=== PATIENT | male | born 1960 | race Caucasian/White ===

== ENCOUNTER 2021-12-15 01:24 | Inpatient (IN) | payer MEDICARE ==
[2021-12-15] MEDS ORDERED: Fentanyl 100 MCG/2 ML VIAL ONE ×3 (02:02→07:26)
[2021-12-15] MEDS ORDERED: Ondansetron PF 4 MG/2 ML Vial ONE ×2 (02:02→03:40)
[2021-12-15] MEDS ORDERED: Piperacillin/Tazobactam 3.375 GM VIAL ONE (02:23)
[2021-12-15 02:33] LABS: ALT (SGPT) Less than 7 U/L (8-55); AST (SGOT) 8 U/L (5-34); Albumin 2.9 g/dL (3.4-4.8); Alkaline Phosphatase 137 U/L (40-110); Anion Gap 16 mmol/L (10-20); BUN (Urea Nitrogen) 27 mg/dL (8.4-25.7); Bilirubin, Total 0.6 mg/dL (0.2-1.2); Calc. Creatinine Clearance 0 mL/min (70-130); Calcium 8.4 mg/dL (7.8-10.44); Carbon Dioxide 24 mmol/L (23-31); Chloride 102 mmol/L (98-107); Globulin 2.8 g/dL (2.4-3.5); Glucose 81 mg/dL (80-115); Lipase 23 U/L (8-78); Potassium 3.6 mmol/L (3.5-5.1); Protein, Total 5.7 g/dL (5.8-8.1); Sodium 138 mmol/L (136-145)
[2021-12-15 02:42] LABS: #Lymphocytes 0.3 thou/uL (1.20-3.40); #Monocytes 0.1 thou/uL (0.11-0.59); #Neutrophils 1.5 thou/uL (1.40-6.50); %Eosinophils 1.8 % (0.0-10.0); %Lymphocytes 13.6 % (21.0-51.0); %Monocytes 3.7 % (0.0-10.0); %Neutrophils 80.8 % (42.0-75.0); Hemoglobin 11.3 g/dL (14.0-18.0); MDiff Complete? YES; Macrocytosis SLIGHT = 6-15 cells (100X) (0-5/hpf); Mean Corpuscular HGB CONC 30.5 g/dL (32.0-36.0); Mean Platelet Volume 6.8 fL (7.4-10.4); Platelet Count 179 thou/uL (130-400); Platelet Morphology Comment Appears Adequate; RBC Distribution Width 16.8 % (11.5-14.5); Red Blood Cell (RBC) Count 3.54 mill/uL (4.70-6.10); Reflex for Review?? YES; White Blood Cell (WBC) Count 1.9 thou/uL (4.8-10.8)
[2021-12-15] MEDS ORDERED: Phenylephrine 10 MG/ML VIAL ONE (03:26)
[2021-12-15] MEDS ORDERED: Lidocaine 1% PF 5 ML VIAL ONE (03:40)
[2021-12-15] MEDS ORDERED: Rocuronium Bromide 10 MG/ML (10ML VIAL) ONE (03:40)
[2021-12-15] MEDS ORDERED: Succinylcholine 200 MG/10 ml SYRINGE FS ONE (03:40)
[2021-12-15] MEDS ORDERED: Vecuronium 10 MG VIAL ONE (03:40)
[2021-12-15 03:59] LABS: SARS-CoV-2 NAA Rapid Test Not Detected (NotDetected)
[2021-12-15] MEDS ORDERED: Norepinephrine 4 MG/4 ML VIAL ONE (04:02)
[2021-12-15] MEDS ORDERED: Albumin 5% 500 ML ONE (04:15)
[2021-12-15] MEDS ORDERED: Midazolam HCl 5 mg/5 ml Vial ONE (04:19)
[2021-12-15] MEDS ORDERED: Dextrose 5% in Water 1,000 ML IV PRN (07:18)
[2021-12-15] MEDS ORDERED: Morphine 2 MG/ML VIAL SLOW IVP PRN ×2 (07:18→07:45)
[2021-12-15] MEDS ORDERED: Morphine 4 MG/ML VIAL SLOW IVP PRN ×2 (07:18→07:45)
[2021-12-15] MEDS ORDERED: Dextrose 50% Abboject 50 ML SYRINGE SLOW IVP PRN (07:18)
[2021-12-15] MEDS ORDERED: Ondansetron PF 4 MG/2 ML Vial IVP PRN (07:18)
[2021-12-15 07:42] LABS: Hemoglobin 10.4 g/dL (14.0-18.0)
[2021-12-15] MEDS ORDERED: DISCONTINUE PREVIOUS NARCOTIC PAIN MEDICATIONS AND BENZODIAZEPINES FS SCH (07:45)
[2021-12-15] MEDS ORDERED: Propofol 1,000 MG/100 ML VIAL IV PRN (07:45)
[2021-12-15] MEDS ORDERED: Fentanyl BOLUS 250 ML IVPB PRN (07:45)
[2021-12-15] MEDS ORDERED: Propofol BOLUS 1,000 MG/100 ML VIAL IV PRN (07:45)
[2021-12-15] MEDS ORDERED: Fentanyl CADD 100 ML IV SCH (07:45)
[2021-12-15 07:56] LABS: Hemoglobin 10.7 g/dL (14.0-18.0); Mean Corpuscular HGB CONC 31.1 g/dL (32.0-36.0); Mean Corpuscular Hemoglobin 32.8 pg (27.0-31.0); Mean Platelet Volume 7.2 fL (7.4-10.4); Platelet Count 180 thou/uL (130-400); RBC Distribution Width 17.2 % (11.5-14.5); Red Blood Cell (RBC) Count 3.25 mill/uL (4.70-6.10); White Blood Cell (WBC) Count 2.6 thou/uL (4.8-10.8)
[2021-12-15 08:00] LABS: INR-International Normal Ratio 1.5; Lactic Acid 1.8 mmol/L (0.5-2.2); Prothrombin Time 18.1 sec (12.0-14.7)
[2021-12-15 08:01] LABS: PTT 38.9 sec (22.9-36.1)
[2021-12-15 08:04] LABS: Anion Gap 12 mmol/L (10-20); BUN (Urea Nitrogen) 29 mg/dL (8.4-25.7); Calc. Creatinine Clearance 0 mL/min (70-130); Calcium 7.5 mg/dL (7.8-10.44); Carbon Dioxide 23 mmol/L (23-31); Chloride 107 mmol/L (98-107); Glucose 98 mg/dL (80-115); Potassium 3.5 mmol/L (3.5-5.1); Sodium 138 mmol/L (136-145)
[2021-12-15 08:27] LABS: Anisocytosis SLIGHT = 6-15 cells (100X) (0-5/hpf); Band 25 % (5-11); Lymphocytes 6 % (21-51); MDiff Complete? YES; Metamyelocyte 3 % (0-0); Monocytes 9 % (0-10); Neutrophil 57 % (42-75); Ovalocytes SLIGHT = 2-5 cells (100X) (0-1/hpf); Platelet Morphology Comment Appears Adequate; Polychromasia SLIGHT = 2-3 cells (100X) (0-2/hpf)
[2021-12-15] MEDS ORDERED: Prevnar 13-Val Conj/PF 0.5 ML SYRINGE IM ONE (08:45)
[2021-12-15] MEDS ORDERED: Norepinephrine 8 MG/0.9% NS 250 ML IVPB SCH (09:00)
[2021-12-15 10:29] LABS: Actual Bicarbonate (HCO3a) 24.4 mEq/L (22-28); Base Excess (BEa) -1.7 mEq/L (-2.0 to +3.0); CO2 Tension 47.2 mmHg (35.0-45.0); Calcium, Ionized (arterial) 1.12 mmol/L (1.12-1.30); Carboxyhemoglobin (COHb) 1.2 gm% (0.0-3.0); Hemoglobin (Hb) 11.1 g/dL (14.0-18.0); O2 Tension (PaO2), arterial 77.6 mmHg (> 80.0); Potassium - ABG Lab 3.51 mmol/L (3.70-5.30); Puncture Site RBA; pH, Arterial 7.33 (7.35-7.45)
[2021-12-15] MEDS ORDERED: Albumin 25% 100 ML ONE (11:16)
[2021-12-15] MEDS: Famotidine/PF 20 mg/2ml Vial SLOW IVP SCH (11:49)
[2021-12-15] MEDS: Sodium Chloride 0.9% 1,000 ML IV SCH ×3 (11:49→23:16)
[2021-12-15] MEDS ORDERED: Iopamidol 370 76% 100 ML VIAL ONE (13:18)
[2021-12-15 13:56] LABS: Hemoglobin 8.8 g/dL (14.0-18.0)
[2021-12-15] MEDS ORDERED: Sodium Chloride 0.9% 1,000 ML IV SCH (14:00)
[2021-12-15] MEDS: Piperacillin/Tazobactam 3.375 GM in Sodium Chloride 0.9% 100 ML IVPB SCH (15:48)
[2021-12-15 17:25] LABS: Hemoglobin 8.4 g/dL (14.0-18.0)
[2021-12-15] MEDS: Hydrocortisone Sod Succ/PF 100 mg/2 ml Vial IVP SCH ×2 (18:05→23:16)
[2021-12-15] MEDS: fentaNYL Citrate-0.9 % NaCl/PF 100 ML IV SCH (18:59)
[2021-12-15] MEDS: Norepinephrine 8 MG, Admixture Fee 1 EACH in Dextrose 5% in Water 242 ML IVPB SCH ×2 (19:01→23:09)
[2021-12-15 19:27] LABS: Hemoglobin 8.2 g/dL (14.0-18.0)
[2021-12-16] MEDS: Piperacillin/Tazobactam 3.375 GM in Sodium Chloride 0.9% 100 ML IVPB SCH ×2 (02:35→14:12)
[2021-12-16] MEDS: Norepinephrine 8 MG, Admixture Fee 1 EACH in Dextrose 5% in Water 242 ML IVPB SCH (04:20)
[2021-12-16 05:04] LABS: Anisocytosis SLIGHT = 6-15 cells (100X) (0-5/hpf); Band 69 % (5-11); Burr Cells MODERATE= 6-15 cells (100X) (0-1/hpf); Hemoglobin 7.4 g/dL (14.0-18.0); Hypochromia SLIGHT = 6-15 cells (100X) (0-5/hpf); Lymphocytes 4 % (21-51); MDiff Complete? YES; Macrocytosis MODERATE=16-30 cells (100X) (0-5/hpf); Mean Corpuscular HGB CONC 29.5 g/dL (32.0-36.0); Mean Platelet Volume 8.1 fL (7.4-10.4); Metamyelocyte 14 % (0-0); Monocytes 3 % (0-10); Myelocyte 2 % (0-0); Neutrophil 8 % (42-75); Platelet Count 208 thou/uL (130-400); Platelet Morphology Comment Appears Adequate; Polychromasia SLIGHT = 2-3 cells (100X) (0-2/hpf); RBC Distribution Width 16.7 % (11.5-14.5); Red Blood Cell (RBC) Count 2.24 mill/uL (4.70-6.10); Toxic Granulation SLIGHT; White Blood Cell (WBC) Count 23.9 thou/uL (4.8-10.8)
[2021-12-16] MEDS: Hydrocortisone Sod Succ/PF 100 mg/2 ml Vial IVP SCH ×4 (05:05→23:59)
[2021-12-16] MEDS ORDERED: Dextrose 5 %-0.45 % NaCl 1,000 ML IV SCH (06:45)
[2021-12-16 07:07] LABS: Actual Bicarbonate (HCO3a) 7.1 mEq/L (22-28); CO2 Tension 37.1 mmHg (35.0-45.0); Calcium, Ionized (arterial) 1.02 mmol/L (1.12-1.30); Carboxyhemoglobin (COHb) 0.9 gm% (0.0-3.0); Hemoglobin (Hb) 7.4 g/dL (14.0-18.0); O2 Tension (PaO2), arterial 89.3 mmHg (> 80.0); Potassium - ABG Lab 6.19 mmol/L (3.70-5.30)
[2021-12-16 07:08] LABS: Puncture Site Arterial Line
[2021-12-16 07:09] LABS: ALV-art Gradient 149.525 mmHg (0-20)
[2021-12-16 07:20] LABS: Chloride 107 mmol/L (98-107); Sodium 137 mmol/L (136-145)
[2021-12-16] MEDS ORDERED: Sodium Bicarb 50 MEQ/50 ML VIAL ONE (07:20)
[2021-12-16 07:21] LABS: Calcium 7.5 mg/dL (7.8-10.44)
[2021-12-16 07:25] LABS: Calc. Creatinine Clearance 19 mL/min (70-130)
[2021-12-16 07:26] LABS: BUN (Urea Nitrogen) 37 mg/dL (8.4-25.7)
[2021-12-16 07:30] LABS: Carbon Dioxide Less than 8 mmol/L (23-31); Glucose 28 mg/dL (80-115); Potassium 6.2 mmol/L (3.5-5.1)
[2021-12-16] MEDS ORDERED: Sodium Bicarb 50 MEQ/50 ML VIAL IVP SCH (07:30)
[2021-12-16] MEDS ORDERED: Albumin 25% 25 GM/100 ML BOT IVPB SCH (07:45)
[2021-12-16] MEDS ORDERED: Sodium Bicarbonate 150 MEQ in Dextrose 5% in Water 1,000 ML IV SCH (08:00)
[2021-12-16] MEDS: Famotidine/PF 20 mg/2ml Vial SLOW IVP SCH (09:12)
[2021-12-16 11:08] LABS: ALV-art Gradient 178.325 mmHg (0-20); Actual Bicarbonate (HCO3a) 17.2 mEq/L (22-28); Base Excess (BEa) -8.2 mEq/L (-2.0 to +3.0); CO2 Tension 34.7 mmHg (35.0-45.0); Calcium, Ionized (arterial) 0.96 mmol/L (1.12-1.30); Carboxyhemoglobin (COHb) 0.7 gm% (0.0-3.0); Hemoglobin (Hb) 8.1 g/dL (14.0-18.0); O2 Tension (PaO2), arterial 63.5 mmHg (> 80.0); Potassium - ABG Lab 4.07 mmol/L (3.70-5.30); Puncture Site Arterial Line; pH, Arterial 7.31 (7.35-7.45)
[2021-12-16 11:47] LABS: Hep B Surf Ag Reflx Confirmation S/CO (NonReactive)
[2021-12-16 11:48] LABS: HBSAg Index 2.28 S/CO (0-0.99)
[2021-12-16 13:47] LABS: Hemoglobin 8.6 g/dL (14.0-18.0)
[2021-12-16 20:07] LABS: Hemoglobin 7.7 g/dL (14.0-18.0)
[2021-12-16] MEDS ORDERED: Dextrose 10% in Water 1,000 ML IV SCH (22:30)
[2021-12-17 01:11] LABS: Hemoglobin 7.6 g/dL (14.0-18.0)
[2021-12-17] MEDS: Piperacillin/Tazobactam 3.375 GM in Sodium Chloride 0.9% 100 ML IVPB SCH ×2 (02:43→15:35)
[2021-12-17 04:18] LABS: Band 52 % (5-11); Hemoglobin 7.5 g/dL (14.0-18.0); Hypochromia SLIGHT = 6-15 cells (100X) (0-5/hpf); Lymphocytes 9 % (21-51); MDiff Complete? YES; Mean Corpuscular HGB CONC 31.5 g/dL (32.0-36.0); Mean Corpuscular Hemoglobin 30.3 pg (27.0-31.0); Mean Corpuscular Volume 96.3 fL (78.0-98.0); Mean Platelet Volume 9.6 fL (7.4-10.4); Metamyelocyte 6 % (0-0); Monocytes 9 % (0-10); Neutrophil 24 % (42-75); Platelet Count 84 thou/uL (130-400); Platelet Morphology Comment Appears Decreased; RBC Distribution Width 19.6 % (11.5-14.5); Red Blood Cell (RBC) Count 2.46 mill/uL (4.70-6.10); White Blood Cell (WBC) Count 18.7 thou/uL (4.8-10.8)
[2021-12-17 04:21] LABS: Anion Gap 19 mmol/L (10-20); BUN (Urea Nitrogen) 23 mg/dL (8.4-25.7); Calc. Creatinine Clearance 32 mL/min (70-130); Calcium 6.5 mg/dL (7.8-10.44); Carbon Dioxide 23 mmol/L (23-31); Chloride 90 mmol/L (98-107); Glucose 200 mg/dL (80-115); Potassium 3.7 mmol/L (3.5-5.1); Sodium 128 mmol/L (136-145)
[2021-12-17] MEDS ORDERED: Digoxin 0.5 MG/2 ML AMP SLOW IVP SCH (04:30)
[2021-12-17] MEDS: Hydrocortisone Sod Succ/PF 100 mg/2 ml Vial IVP SCH ×3 (05:08→17:06)
[2021-12-17] MEDS ORDERED: Epoetin (ESRD) 20,000 UNITS/ML SC SCH (06:30)
[2021-12-17 07:17] LABS: Actual Bicarbonate (HCO3a) 27.1 mEq/L (22-28); Base Excess (BEa) 5.1 mEq/L (-2.0 to +3.0); CO2 Tension 29.4 mmHg (35.0-45.0); Calcium, Ionized (arterial) 0.86 mmol/L (1.12-1.30); Carboxyhemoglobin (COHb) 1.6 gm% (0.0-3.0); Hemoglobin (Hb) 8.1 g/dL (14.0-18.0); O2 Tension (PaO2), arterial 71.8 mmHg (> 80.0); Potassium - ABG Lab 3.73 mmol/L (3.70-5.30)
[2021-12-17 07:19] LABS: pH, Arterial 7.58 (7.35-7.45)
[2021-12-17 07:20] LABS: Puncture Site RRA
[2021-12-17 07:54] LABS: ALT (SGPT) 2034 U/L (8-55); Albumin 1.9 g/dL (3.4-4.8); Alkaline Phosphatase 97 U/L (40-110); Bilirubin, Direct 1.6 mg/dL (0.1-0.3); Bilirubin, Total 3.4 mg/dL (0.2-1.2); Protein, Total 3.4 g/dL (5.8-8.1)
[2021-12-17] MEDS: Famotidine/PF 20 mg/2ml Vial SLOW IVP SCH (08:01)
[2021-12-17 08:12] LABS: AST (SGOT) Greater than 3500 U/L (5-34)
[2021-12-17] MEDS ORDERED: EPOETIN ALFA-EPBX (ESRD) 2,000 UNIT/ML VIAL SC SCH (09:00)
[2021-12-17] MEDS ORDERED: EPOETIN ALFA-EPBX (ESRD) 3,000 UNIT/ML VIAL SC SCH (09:00)
[2021-12-17] MEDS: Dextrose 5 % And 0.9 % NaCl 1,000 ML IV SCH (10:35)
[2021-12-17] MEDS: Lorazepam 2 MG/ML VIAL SLOW IVP PRN (12:39)
[2021-12-17 13:28] LABS: Hemoglobin 10.3 g/dL (14.0-18.0)
[2021-12-17] MEDS ORDERED: Propofol 1,000 MG/100 ML VIAL IV ONE (16:48)
[2021-12-17] MEDS: Albumin 25% 25 GM/100 ML BOT IVPB SCH (17:05)
[2021-12-17 20:00] LABS: Hemoglobin 9.1 g/dL (14.0-18.0)
[2021-12-17] MEDS: fentaNYL Citrate-0.9 % NaCl/PF 100 ML IV SCH (22:17)
[2021-12-18] MEDS: Hydrocortisone Sod Succ/PF 100 mg/2 ml Vial IVP SCH ×5 (00:44→23:54)
[2021-12-18] MEDS: Piperacillin/Tazobactam 3.375 GM in Sodium Chloride 0.9% 100 ML IVPB SCH ×2 (03:19→15:54)
[2021-12-18 05:06] LABS: INR-International Normal Ratio 2.1; Prothrombin Time 24.2 sec (12.0-14.7)
[2021-12-18 05:07] LABS: PTT 44.3 sec (22.9-36.1)
[2021-12-18 05:20] LABS: Anion Gap 15 mmol/L (10-20); BUN (Urea Nitrogen) 21 mg/dL (8.4-25.7); Calc. Creatinine Clearance 43 mL/min (70-130); Carbon Dioxide 26 mmol/L (23-31); Chloride 95 mmol/L (98-107); Potassium 4.3 mmol/L (3.5-5.1); Sodium 132 mmol/L (136-145)
[2021-12-18 05:21] LABS: ALT (SGPT) 1093 U/L (8-55); AST (SGOT) 1712 U/L (5-34); Albumin 2.3 g/dL (3.4-4.8); Alkaline Phosphatase 125 U/L (40-110); Bilirubin, Total 5.3 mg/dL (0.2-1.2); Calcium 7.3 mg/dL (7.8-10.44); Globulin 1.7 g/dL (2.4-3.5); Glucose 88 mg/dL (80-115)
[2021-12-18 05:39] LABS: Anisocytosis MODERATE=16-30 cells (100X) (0-5/hpf); Band 32 % (5-11); Burr Cells SLIGHT = 2-5 cells (100X) (0-1/hpf); Hemoglobin 9.3 g/dL (14.0-18.0); Lymphocytes 3 % (21-51); MDiff Complete? YES; Mean Corpuscular HGB CONC 32.2 g/dL (32.0-36.0); Mean Corpuscular Volume 93.3 fL (78.0-98.0); Mean Platelet Volume 10.7 fL (7.4-10.4); Metamyelocyte 4 % (0-0); Monocytes 5 % (0-10); Neutrophil 56 % (42-75); Nucleated RBC 2 % (0); Platelet Count 42 thou/uL (130-400); Platelet Morphology Comment Appears Decreased; RBC Distribution Width 19.6 % (11.5-14.5); Red Blood Cell (RBC) Count 3.09 mill/uL (4.70-6.10); Schistocytes SLIGHT = 2-5 cells (100X) (0-1/hpf); Stomatocytes SLIGHT = 2-5 cells (100X) (0-1/hpf); White Blood Cell (WBC) Count 22.5 thou/uL (4.8-10.8)
[2021-12-18] MEDS: Dextrose 5 % And 0.9 % NaCl 1,000 ML IV SCH (06:19)
[2021-12-18 07:11] LABS: Actual Bicarbonate (HCO3a) 25.1 mEq/L (22-28); Base Excess (BEa) 1.8 mEq/L (-2.0 to +3.0); CO2 Tension 34.7 mmHg (35.0-45.0); Calcium, Ionized (arterial) 0.97 mmol/L (1.12-1.30); Carboxyhemoglobin (COHb) 1.6 gm% (0.0-3.0); Hemoglobin (Hb) 9.7 g/dL (14.0-18.0); O2 Tension (PaO2), arterial 77.8 mmHg (> 80.0); Potassium - ABG Lab 4.16 mmol/L (3.70-5.30); pH, Arterial 7.48 (7.35-7.45)
[2021-12-18 07:16] LABS: Puncture Site Arterial Line
[2021-12-18 07:17] LABS: ALV-art Gradient 164.025 mmHg (0-20)
[2021-12-18 07:23] LABS: Hemoglobin 9.2 g/dL (14.0-18.0)
[2021-12-18] MEDS: Famotidine/PF 20 mg/2ml Vial SLOW IVP SCH (08:22)
[2021-12-18] MEDS ORDERED: SODIUM ACETATE IV SCH (14:00)
[2021-12-18] MEDS ORDERED: [UNRECOGNIZED DRUG - OTHER] IV SCH (14:00)
[2021-12-18] MEDS ORDERED: SODIUM CHLORIDE IV SCH (14:00)
[2021-12-18] MEDS ORDERED: Fat Emulsion 250 ML IVPB SCH (14:00)
[2021-12-18] MEDS ORDERED: CALCIUM CHLORIDE IV SCH (14:00)
[2021-12-18] MEDS: Albumin 25% 25 GM/100 ML BOT IVPB SCH (17:50)
[2021-12-19] MEDS: Piperacillin/Tazobactam 3.375 GM in Sodium Chloride 0.9% 100 ML IVPB SCH ×2 (02:08→14:24)
[2021-12-19] MEDS: Hydrocortisone Sod Succ/PF 100 mg/2 ml Vial IVP SCH ×4 (05:00→23:39)
[2021-12-19] MEDS: fentaNYL Citrate-0.9 % NaCl/PF 100 ML IV SCH ×2 (05:00→20:42)
[2021-12-19 05:07] LABS: INR-International Normal Ratio 1.8; Prothrombin Time 20.8 sec (12.0-14.7)
[2021-12-19 05:08] LABS: PTT 44.4 sec (22.9-36.1)
[2021-12-19 05:38] LABS: ALT (SGPT) 485 U/L (8-55); AST (SGOT) 426 U/L (5-34); Albumin 1.7 g/dL (3.4-4.8); Alkaline Phosphatase 70 U/L (40-110); Anion Gap 12 mmol/L (10-20); BUN (Urea Nitrogen) 18 mg/dL (8.4-25.7); Bilirubin, Total 3.9 mg/dL (0.2-1.2); Calc. Creatinine Clearance 65 mL/min (70-130); Carbon Dioxide 21 mmol/L (23-31); Chloride 107 mmol/L (98-107); Globulin 1.9 g/dL (2.4-3.5); Glucose 110 mg/dL (80-115); Magnesium 1.4 mg/dL (1.6-2.6); Phosphorus 1.4 mg/dL (2.3-4.7); Potassium 3.1 mmol/L (3.5-5.1); Protein, Total 3.6 g/dL (5.8-8.1); Sodium 137 mmol/L (136-145)
[2021-12-19 06:13] LABS: Band 34 % (5-11); Hemoglobin 9.4 g/dL (14.0-18.0); Hypochromia SLIGHT = 6-15 cells (100X) (0-5/hpf); Lymphocytes 2 % (21-51); MDiff Complete? YES; Mean Corpuscular HGB CONC 31.2 g/dL (32.0-36.0); Mean Corpuscular Hemoglobin 29.7 pg (27.0-31.0); Mean Corpuscular Volume 95.2 fL (78.0-98.0); Mean Platelet Volume 12.2 fL (7.4-10.4); Monocytes 13 % (0-10); Neutrophil 51 % (42-75); Platelet Count 18 thou/uL (130-400); Platelet Morphology Comment Appears Decreased; RBC Distribution Width 19.4 % (11.5-14.5); Red Blood Cell (RBC) Count 3.16 mill/uL (4.70-6.10); White Blood Cell (WBC) Count 13.5 thou/uL (4.8-10.8)
[2021-12-19] MEDS ORDERED: Calcium Chloride 1 GM/10 ML Abboject SYRINGE IVP SCH (06:15)
[2021-12-19] MEDS ORDERED: Potassium Phosphate 15 MMOL in Sodium Chloride 0.9% 100 ML IVPB SCH (06:45)
[2021-12-19] MEDS ORDERED: Potassium ACETATE 40 MEQ/20 ML VIAL IV SCH (07:45)
[2021-12-19] MEDS ORDERED: Potassium ACETATE 40 MEQ in Sodium Chloride 0.9% 250 ML 250 ML IV SCH (08:00)
[2021-12-19] MEDS: Lorazepam 2 MG/ML VIAL SLOW IVP PRN ×2 (08:07→16:48)
[2021-12-19 08:10] LABS: Actual Bicarbonate (HCO3a) 30.1 mEq/L (22-28); Base Excess (BEa) 4.3 mEq/L (-2.0 to +3.0); CO2 Tension 51.2 mmHg (35.0-45.0); Calcium, Ionized (arterial) 1.17 mmol/L (1.12-1.30); Carboxyhemoglobin (COHb) 1.3 gm% (0.0-3.0); Hemoglobin (Hb) 9.7 g/dL (14.0-18.0); O2 Tension (PaO2), arterial 82.6 mmHg (> 80.0); Potassium - ABG Lab 3.59 mmol/L (3.70-5.30); pH, Arterial 7.39 (7.35-7.45)
[2021-12-19 08:11] LABS: Puncture Site Arterial Line
[2021-12-19] MEDS: Famotidine/PF 20 mg/2ml Vial SLOW IVP SCH ×2 (09:38→20:35)
[2021-12-19] MEDS ORDERED: POTASSIUM CHLORIDE IV SCH ×2 (14:00)
[2021-12-19] MEDS ORDERED: [UNRECOGNIZED DRUG - OTHER] IV SCH ×2 (14:00)
[2021-12-19] MEDS ORDERED: SODIUM ACETATE IV SCH ×2 (14:00)
[2021-12-19] MEDS ORDERED: SODIUM CHLORIDE IV SCH ×2 (14:00)
[2021-12-19 18:39] LABS: Hep B Surface AG-Rflx Sendout Confirm. indicated (Negative)
[2021-12-20] MEDS: Piperacillin/Tazobactam 3.375 GM in Sodium Chloride 0.9% 100 ML IVPB SCH ×2 (02:09→14:55)
[2021-12-20 04:30] LABS: Hemoglobin 9.1 g/dL (14.0-18.0); Mean Corpuscular Volume 96.6 fL (78.0-98.0); Mean Platelet Volume 13.9 fL (7.4-10.4); Platelet Count 15 thou/uL (130-400); RBC Distribution Width 19.2 % (11.5-14.5); Red Blood Cell (RBC) Count 3.03 mill/uL (4.70-6.10); White Blood Cell (WBC) Count 9.4 thou/uL (4.8-10.8)
[2021-12-20 04:37] LABS: INR-International Normal Ratio 1.3; Prothrombin Time 16.8 sec (12.0-14.7)
[2021-12-20 04:39] LABS: PTT 34.5 sec (22.9-36.1)
[2021-12-20 04:58] LABS: ALT (SGPT) 374 U/L (8-55); AST (SGOT) 220 U/L (5-34); Albumin 2.2 g/dL (3.4-4.8); Alkaline Phosphatase 91 U/L (40-110); Anion Gap 12 mmol/L (10-20); BUN (Urea Nitrogen) 32 mg/dL (8.4-25.7); Bilirubin, Total 4.6 mg/dL (0.2-1.2); Calc. Creatinine Clearance 50 mL/min (70-130); Calcium 8.1 mg/dL (7.8-10.44); Carbon Dioxide 29 mmol/L (23-31); Chloride 97 mmol/L (98-107); Glucose 145 mg/dL (80-115); Potassium 3.9 mmol/L (3.5-5.1); Protein, Total 4.2 g/dL (5.8-8.1); Sodium 134 mmol/L (136-145)
[2021-12-20] MEDS: Hydrocortisone Sod Succ/PF 100 mg/2 ml Vial IVP SCH ×4 (05:17→23:38)
[2021-12-20 05:35] LABS: Band 16 % (5-11); Hypochromia SLIGHT = 6-15 cells (100X) (0-5/hpf); Lymphocytes 4 % (21-51); MDiff Complete? YES; Monocytes 6 % (0-10); Neutrophil 72 % (42-75); Platelet Morphology Comment Appears Decreased; Polychromasia SLIGHT = 2-3 cells (100X) (0-2/hpf); Reactive Lymphocytes 2 % (0-10); Target Cells SLIGHT = 2-5 cells (100X) (0-1/hpf)
[2021-12-20 07:10] LABS: Actual Bicarbonate (HCO3a) 29.3 mEq/L (22-28); Base Excess (BEa) 4.5 mEq/L (-2.0 to +3.0); CO2 Tension 45.1 mmHg (35.0-45.0); Calcium, Ionized (arterial) 1.09 mmol/L (1.12-1.30); Carboxyhemoglobin (COHb) 1.2 gm% (0.0-3.0); Hemoglobin (Hb) 9.3 g/dL (14.0-18.0); O2 Tension (PaO2), arterial 105.3 mmHg (> 80.0); Potassium - ABG Lab 3.82 mmol/L (3.70-5.30); pH, Arterial 7.43 (7.35-7.45)
[2021-12-20 07:17] LABS: ALV-art Gradient 123.525 mmHg (0-20); Puncture Site Arterial Line
[2021-12-20] MEDS: Famotidine/PF 20 mg/2ml Vial SLOW IVP SCH ×2 (08:29→21:11)
[2021-12-20 09:25] LABS: Magnesium 1.7 mg/dL (1.6-2.6); Phosphorus 1.9 mg/dL (2.3-4.7)
[2021-12-20] MEDS ORDERED: Magnesium 2 GM/50 ML(in water) 2 GM in Premix Bag 1 BAG IVPB SCH (11:15)
[2021-12-20] MEDS ORDERED: Potassium Phosphate 15 MMOL in Sodium Chloride 0.9% 250 ML 250 ML IVPB SCH (11:15)
[2021-12-20] MEDS ORDERED: SODIUM CHLORIDE IV SCH (14:00)
[2021-12-20] MEDS ORDERED: Fat Emulsion 250 ML IVPB SCH (14:00)
[2021-12-20] MEDS ORDERED: FAT EMULSION IV SCH (14:00)
[2021-12-20] MEDS ORDERED: SODIUM ACETATE IV SCH (14:00)
[2021-12-20] MEDS ORDERED: [UNRECOGNIZED DRUG - OTHER] IV SCH (14:00)
[2021-12-20] MEDS: SODIUM ACETATE IV SCH ×2 (15:31→15:32)
[2021-12-20] MEDS: [UNRECOGNIZED DRUG - OTHER] IV SCH (15:31)
[2021-12-20] MEDS: FAT EMULSION IV SCH (15:31)
[2021-12-20] MEDS: SODIUM CHLORIDE IV SCH ×2 (15:31→15:32)
[2021-12-20] MEDS: [UNRECOGNIZED DRUG - OTHER] IV SCH (15:32)
[2021-12-20] MEDS: POTASSIUM CHLORIDE IV SCH (15:32)
[2021-12-20] MEDS: fentaNYL Citrate-0.9 % NaCl/PF 100 ML IV SCH (18:28)
[2021-12-21] MEDS: Piperacillin/Tazobactam 3.375 GM in Sodium Chloride 0.9% 100 ML IVPB SCH ×2 (02:07→14:21)
[2021-12-21 04:43] LABS: ALT (SGPT) 212 U/L (8-55); AST (SGOT) 125 U/L (5-34); Albumin 1.9 g/dL (3.4-4.8); Alkaline Phosphatase 133 U/L (40-110); Anion Gap 11 mmol/L (10-20); BUN (Urea Nitrogen) 41 mg/dL (8.4-25.7); Bilirubin, Total 4.3 mg/dL (0.2-1.2); Calc. Creatinine Clearance 47 mL/min (70-130); Calcium 7.6 mg/dL (7.8-10.44); Carbon Dioxide 28 mmol/L (23-31); Chloride 99 mmol/L (98-107); Glucose 160 mg/dL (80-115); Potassium 4.3 mmol/L (3.5-5.1); Protein, Total 3.9 g/dL (5.8-8.1); Sodium 134 mmol/L (136-145)
[2021-12-21 05:00] LABS: Band 40 % (5-11); Hemoglobin 7.6 g/dL (14.0-18.0); Hypochromia SLIGHT = 6-15 cells (100X) (0-5/hpf); Lymphocytes 5 % (21-51); MDiff Complete? YES; Mean Corpuscular HGB CONC 33.1 g/dL (32.0-36.0); Mean Corpuscular Hemoglobin 31.1 pg (27.0-31.0); Mean Platelet Volume 13.1 fL (7.4-10.4); Monocytes 6 % (0-10); Neutrophil 49 % (42-75); Platelet Count 19 thou/uL (130-400); Platelet Morphology Comment Appears Decreased; RBC Distribution Width 18.8 % (11.5-14.5); Red Blood Cell (RBC) Count 2.44 mill/uL (4.70-6.10); White Blood Cell (WBC) Count 7.6 thou/uL (4.8-10.8)
[2021-12-21] MEDS: Hydrocortisone Sod Succ/PF 100 mg/2 ml Vial IVP SCH ×4 (05:47→23:36)
[2021-12-21 08:01] LABS: Magnesium 2.1 mg/dL (1.6-2.6)
[2021-12-21] MEDS: Pantoprazole 40 MG VIAL IVP SCH (08:53)
[2021-12-21] MEDS: SODIUM CHLORIDE IV SCH (15:18)
[2021-12-21] MEDS: [UNRECOGNIZED DRUG - OTHER] IV SCH (15:18)
[2021-12-21] MEDS: POTASSIUM CHLORIDE IV SCH (15:18)
[2021-12-21] MEDS: SODIUM ACETATE IV SCH (15:18)
[2021-12-21 23:12] LABS: Hemoglobin 9.5 g/dL (14.0-18.0); Mean Corpuscular Hemoglobin 31.4 pg (27.0-31.0); Mean Corpuscular Volume 92.3 fL (78.0-98.0); Mean Platelet Volume 10.4 fL (7.4-10.4); Platelet Count 44 thou/uL (130-400); RBC Distribution Width 17.7 % (11.5-14.5); Red Blood Cell (RBC) Count 3.03 mill/uL (4.70-6.10); White Blood Cell (WBC) Count 12.6 thou/uL (4.8-10.8)
[2021-12-21 23:13] LABS: Band 25 % (5-11); Large Platelets SLIGHT; Lymphocytes 4 % (21-51); MDiff Complete? YES; Monocytes 4 % (0-10); Neutrophil 67 % (42-75); Nucleated RBC 1 % (0); Platelet Morphology Comment Appears Decreased; Polychromasia SLIGHT = 2-3 cells (100X) (0-2/hpf)
[2021-12-22] MEDS: Piperacillin/Tazobactam 3.375 GM in Sodium Chloride 0.9% 100 ML IVPB SCH ×2 (03:40→14:51)
[2021-12-22 04:25] LABS: Hemoglobin 8.3 g/dL (14.0-18.0); Mean Corpuscular HGB CONC 33.8 g/dL (32.0-36.0); Mean Corpuscular Hemoglobin 31.4 pg (27.0-31.0); Mean Platelet Volume 9.5 fL (7.4-10.4); Platelet Count 61 thou/uL (130-400); RBC Distribution Width 17.8 % (11.5-14.5); Red Blood Cell (RBC) Count 2.63 mill/uL (4.70-6.10); White Blood Cell (WBC) Count 12.9 thou/uL (4.8-10.8)
[2021-12-22 04:44] LABS: ALT (SGPT) 155 U/L (8-55); AST (SGOT) 103 U/L (5-34); Alkaline Phosphatase 156 U/L (40-110); Anion Gap 15 mmol/L (10-20); BUN (Urea Nitrogen) 49 mg/dL (8.4-25.7); Calc. Creatinine Clearance 45 mL/min (70-130); Calcium 7.9 mg/dL (7.8-10.44); Carbon Dioxide 25 mmol/L (23-31); Chloride 100 mmol/L (98-107); Globulin 2.1 g/dL (2.4-3.5); Glucose 172 mg/dL (80-115); Magnesium 2.1 mg/dL (1.6-2.6); Potassium 4.5 mmol/L (3.5-5.1); Protein, Total 4.1 g/dL (5.8-8.1); Sodium 135 mmol/L (136-145)
[2021-12-22] MEDS: fentaNYL Citrate-0.9 % NaCl/PF 100 ML IV SCH (05:13)
[2021-12-22] MEDS: Hydrocortisone Sod Succ/PF 100 mg/2 ml Vial IVP SCH ×2 (05:23→11:58)
[2021-12-22 05:27] LABS: Band 40 % (5-11); Lymphocytes 4 % (21-51); MDiff Complete? YES; Monocytes 2 % (0-10); Neutrophil 54 % (42-75); Nucleated RBC 1 % (0); Platelet Morphology Comment Appears Decreased
[2021-12-22 05:50] LABS: Phosphorus 2.2 mg/dL (2.3-4.7)
[2021-12-22 08:07] LABS: Actual Bicarbonate (HCO3a) 26.2 mEq/L (22-28); Base Excess (BEa) 3.6 mEq/L (-2.0 to +3.0); CO2 Tension 31.9 mmHg (35.0-45.0); Calcium, Ionized (arterial) 1.14 mmol/L (1.12-1.30); Carboxyhemoglobin (COHb) 1.6 gm% (0.0-3.0); Hemoglobin (Hb) 8.9 g/dL (14.0-18.0); O2 Tension (PaO2), arterial 74.8 mmHg (> 80.0); pH, Arterial 7.53 (7.35-7.45)
[2021-12-22 08:13] LABS: Puncture Site Arterial Line
[2021-12-22 08:15] LABS: ALV-art Gradient 134.875 mmHg (0-20)
[2021-12-22 08:31] VITALS: BMI 23.2
[2021-12-22] MEDS: Pantoprazole 40 MG VIAL IVP SCH (09:39)
[2021-12-22] MEDS ORDERED: HYDROmorphone 0.5 MG/0.5 ML SYRINGE SLOW IVP SCH (11:15)
[2021-12-22] MEDS ORDERED: Sodium Chloride 0.9% 500 ML IV SCH (14:30)
[2021-12-22] MEDS: SODIUM ACETATE IV SCH (14:30)
[2021-12-22] MEDS: [UNRECOGNIZED DRUG - OTHER] IV SCH (14:30)
[2021-12-22] MEDS: SODIUM CHLORIDE IV SCH (14:30)
[2021-12-22] MEDS: FAT EMULSION IV SCH (14:30)
[2021-12-22 14:50] VITALS: BP 87/50
[2021-12-22 16:21] VITALS: TEMP 100
[2021-12-22 20:03] LABS: SARS-CoV-2 PCR by NAA Not Detected (NotDetected)
== END 2021-12-22 16:34 | disposition hospice, inpatient (51) | DRG 853 ==
LOC: ERS 01:24 → SDC/OP 03:34 → CCU 07:15 → IMCU/EMU 12-19 10:16 → CCU 12-19 10:23
PROVIDERS: ADMIT Specialist; ATTEND Specialist
PROC: 0DBN0ZZ Excision of Sigmoid Colon, Open Approach (ICD-10-PCS; principal; 2021-12-15)
PROC: 0D1N0Z4 Bypass Sigmoid Colon to Cutaneous, Open Approach (ICD-10-PCS; 2021-12-15)
PROC: 3E03329 Introduction of Other Anti-infective into Peripheral Vein, Percutaneous Approach (ICD-10-PCS; 2021-12-15)
PROC: 5A1955Z Respiratory Ventilation, Greater than 96 Consecutive Hours (ICD-10-PCS; 2021-12-15)
PROC: 02H633Z Insertion of Infusion Device into Right Atrium, Percutaneous Approach (ICD-10-PCS; 2021-12-15)
PROC: B548ZZA Ultrasonography of Superior Vena Cava, Guidance (ICD-10-PCS; 2021-12-15)
PROC: 04HK33Z Insertion of Infusion Device into Right Femoral Artery, Percutaneous Approach (ICD-10-PCS; 2021-12-15)
PROC: 30233N1 Transfusion of Nonautologous Red Blood Cells into Peripheral Vein, Percutaneous Approach (ICD-10-PCS; 2021-12-16)
PROC: 3E043XZ Introduction of Vasopressor into Central Vein, Percutaneous Approach (ICD-10-PCS; 2021-12-16)
PROC: 3E0336Z Introduction of Nutritional Substance into Peripheral Vein, Percutaneous Approach (ICD-10-PCS; 2021-12-18)
PROC: 30233R1 Transfusion of Nonautologous Platelets into Peripheral Vein, Percutaneous Approach (ICD-10-PCS; 2021-12-21)
DX: A41.9 Sepsis, unspecified organism (principal); N18.6 End stage renal disease; K63.1 Perforation of intestine (nontraumatic); K65.8 Other peritonitis; J96.01 Acute respiratory failure with hypoxia; G93.41 Metabolic encephalopathy; I48.92 Unspecified atrial flutter; E87.2 Acidosis; Z99.11 Dependence on respirator [ventilator] status; I69.954 Hemiplegia and hemiparesis following unspecified cerebrovascular disease affecting left non-dominant side; Z66 Do not resuscitate; Z51.5 Encounter for palliative care; Z20.822 Contact with and (suspected) exposure to COVID-19; I45.10 Unspecified right bundle-branch block; I48.91 Unspecified atrial fibrillation; D69.6 Thrombocytopenia, unspecified; D63.1 Anemia in chronic kidney disease; R65.20 Severe sepsis without septic shock; K75.89 Other specified inflammatory liver diseases; E16.2 Hypoglycemia, unspecified; Z99.2 Dependence on renal dialysis; Z90.49 Acquired absence of other specified parts of digestive tract; Z98.890 Other specified postprocedural states; Z79.82 Long term (current) use of aspirin; Z78.1 Physical restraint status; Z99.3 Dependence on wheelchair; Z79.899 Other long term (current) drug therapy
CPT/HCPCS: 36415; 36416; 36430; 36600; 71045; 74177; 80048; 80053; 80076; 82805; 83605; 83690; 83735; 84100; 84134; 85014; 85018; 85025; 85060; 85610; 85730; 86850; 86900; 86901; 87040; 87076; 87149; 87340; 88307; 90935; 93005; 93010; 94002; 94003; 96365; 96375; A4217; C1751; C1776; C9113; G0257; J0610; J1160; J1170; J1720; J2060; J2250; J2370; J2405; J2543; J3010; J3475; J3480; J3490; J7030; J7042; J7050; J7070; J7999; P9016; P9035; P9045; P9047; Q5105; Q9967; S0028; U0002; U0003; U0005